=== PATIENT | male | born 1990 | race Two or more races ===

== ENCOUNTER 2019-05-16 19:45 | Emergency (ER) | payer BC, MEDICAID ==
[~2019-05-16] VITALS: Ht 180.3 cm; Wt 79.4 kg
--- NOTE | 2019-05-16 20:19 | NUR ---
PT PLACED IN BED.
--- NOTE | 2019-05-16 20:21 | NUR ---
DR MIRANDA AT BEDSIDE FOR EVAL.
[2019-05-16] MEDS ORDERED: ACETAMINOPHEN ES 500 MG TABLET PO ONE (20:30)
--- NOTE | 2019-05-16 20:36 | NUR ---
PT TAKEN FOR CT OF THE FACE AND XRAY OF CHEST AND L HAND ORDERED.
[2019-05-16] MEDS ORDERED: ACETAMINOPHEN ES 500 MG TABLET ONE (20:49)
--- NOTE | 2019-05-16 21:09 | NUR ---
TYLENOL GIVEN ORDERED
[2019-05-16 22:28] VITALS: BP 138/70
== END 2019-05-16 22:29 | disposition home or self-care (01) ==
LOC: ER 19:57
DX: S02.31XA Fracture of orbital floor, right side, initial encounter for closed fracture (principal); S02.40EA Zygomatic fracture, right side, initial encounter for closed fracture; S92.252A Displaced fracture of navicular [scaphoid] of left foot, initial encounter for closed fracture; S00.81XA Abrasion of other part of head, initial encounter; S20.311A Abrasion of right front wall of thorax, initial encounter; Z60.2 Problems related to living alone; V00.141A Fall from scooter (nonmotorized), initial encounter; Y93.I9 Activity, other involving external motion; Y92.488 Other paved roadways as the place of occurrence of the external cause; Y99.8 Other external cause status
CPT/HCPCS: 70486-TC; 71045-TC; 73130-TC

== ENCOUNTER 2021-04-01 21:09 | Emergency (ER) | payer BC, OTHER ==
[~2021-04-01] VITALS: Ht 180.3 cm; Wt 80.7 kg
--- NOTE | 2021-04-01 21:11 | NUR ---
PT AAOX4. BIBRA C/O RT FLANK PAIN X24HRS. PLACED IN BED 9 ON MONITOR AND PULSE OX.
[2021-04-01] MEDS ORDERED: KETOROLAC TROMETHAMINE INJ 30 MG/ML VIAL IV ONE (21:30)
[2021-04-01] MEDS ORDERED: FAMOTIDINE/PF INJ 20 MG/2 ML VIAL IV ONE ×2 (21:30→21:43)
[2021-04-01 21:32] LABS: BILIRUBIN,URINE Negative (NEGATIVE); COLOR,URINE YELLOW (YELLOW); LEUKOCYTE ESTERASE ,URINE Negative (NEGATIVE); NITRITE, URINE Negative (NEGATIVE); PH,URINE 5.5 (5.0-8.0); PROTEIN,URINE Negative (NEGATIVE); UGLUCOSE Negative (NEGATIVE); UROBILINOGEN,URINE 0.2 EU/dL (0.2)
[2021-04-01 21:42] LABS: BACTERIA,URINE Rare /HPF (None Seen); RBC,URINE 0-2 /HPF (0-2); SQUAMOUS EPITHELIAL CELL,UR 0-2 /HPF (None Seen); WBC,URINE 0-2 /HPF (0-3)
[2021-04-01] MEDS ORDERED: KETOROLAC TROMETHAMINE 15 MG/ML VIAL ONE (21:42)
[2021-04-01 21:45] LABS: BASOPHILS % (AUTO) 0.5 % (0.0-2.0); EOSINOPHILS % (AUTO) 1.9 % (0.0-6.0); HEMATOCRIT 43 % (39-51); HEMOGLOBIN 14.9 g/dL (13.5-17.5); LYMPHOCYTES # (AUTO) 2.1 /CMM (0.8-4.8); LYMPHOCYTES % (AUTO) 28.7 % (20.0-44.0); MEAN CORPUSCULAR HGB CONC 35 g/dl (31.0-36.0); MEAN CORPUSCULAR VOLUME 84 fL (80-96); MONOCYTES # (AUTO) 0.6 /CMM (0.1-1.30); MONOCYTES % (AUTO) 7.8 % (2.0-12.0); NEUTROPHILS # (AUTO) 4.5 /CMM (1.8-8.9); NEUTROPHILS % (AUTO) 61.1 % (43.0-81.0); PLATELET COUNT (AUTO) 228 /CMM (150-450); RED BLOOD CELL COUNT(AUTO) 5.15 MIL/uL (4.5-6.0); WHITE BLOOD COUNT (AUTO) 7.3 K/uL (4.3-11.0)
[2021-04-01 22:01] LABS: BILIRUBIN,DIRECT 0.1 mg/dL (0.0-0.2); BILIRUBIN,TOTAL 0.5 mg/dL (0.2-1.0); CALCIUM, SERUM 8.9 mg/dL (8.5-10.1); CREATININE 0.9 mg/dL (0.6-1.3); POTASSIUM 3.9 mmol/L (3.5-5.1); TOTAL PROTEIN, SERUM 7.1 g/dL (6.4-8.2)
--- NOTE | 2021-04-01 22:09 | NUR ---
US AT BEDSIDE
[2021-04-01] MEDS ORDERED: FAMO-131 PO (22:54)
--- NOTE | 2021-04-01 23:04 | NUR ---
IV removed. Catheter intact and site benign. Pressure and 4x4 applied to site. No bleeding noted.
[2021-04-01 23:05] VITALS: BP 124/73
--- NOTE | 2021-04-01 23:05 | NUR ---
Patient discharged to home in stable condition. Written and verbal after care instructions given. Patient verbalizes understanding of instruction and RX. Pt ambulated out of ED. VSS.
== END 2021-04-01 23:05 | disposition home or self-care (01) ==
LOC: ER 21:09
DX: K29.70 Gastritis, unspecified, without bleeding (principal); Z60.2 Problems related to living alone; Z79.899 Other long term (current) drug therapy
CPT/HCPCS: 36415; 76705; 80048; 80076; 81001; 82550; 83690; 85025; 85730; 96374; 96375; 99284; J1885; J3490